=== PATIENT | female | born 1970 | race Caucasian/White ===

== ENCOUNTER 2016-07-02 03:46 | Emergency (ER) | payer MEDICAID ==
[~2016-07-02] VITALS: Ht 157.5 cm; Wt 81.6 kg
[2016-07-02 03:50] VITALS: BP 139/84; PULSE 78; RESP 18; TEMP 97.8; O2SAT 97
--- NOTE | 2016-07-02 03:50 | NUR ---
Placed in room 8. Placed on blood pressure machine and pulse oximeter. To gown for exam. Side rails up.
--- NOTE | 2016-07-02 04:00 | NUR ---
Patient alert and orient x 4. Korean speaking only. One female and one male family member at bedside. Male family member stands as interpreter translator. Pt came in the ER with a complaint of RUQ abdominal pain which started an hour ago and radiates to her lower leg. Pain scale 10/10. Denies nausea, vomiting or diarrhea. No fever or headache. No acute distress or SOB noted.
--- NOTE | 2016-07-02 04:14 | NUR ---
ER Dr. Jackson at bedside examining patient.
[2016-07-02] MEDS ORDERED: NACL 0.9% 1,000 ML IV ONE (04:15)
[2016-07-02] MEDS ORDERED: MORPHINE 4 MG/ML INJ. SYRINGE IVP ONE (04:15)
[2016-07-02] MEDS ORDERED: KETOROLAC TROMETHAMINE 30 MG VIAL IVP ONE (04:15)
--- NOTE | 2016-07-02 04:15 | NUR ---
# 20 gauge angiocath placed to right AC. Use of asceptic technique. Opsite placed over site. Blood return noted. Blood for lab drawn from site. Flushed with 10 cc of normal saline. No evidence of infiltration noted. Patient tolerated well.
[2016-07-02 04:24] LABS: BILIRUBIN,URINE NEGATIVE (NEGATIVE); BLOOD, URINE 3+ (NEGATIVE); COLOR,URINE YELLOW (YELLOW); GLUCOSE,URINE NEGATIVE (NEGATIVE); KETONES,URINE NEGATIVE (NEGATIVE); LEUKOCYTE ESTERASE ,URINE NEGATIVE (NEGATIVE); NITRITE, URINE NEGATIVE (NEGATIVE); PH,URINE 5.5 (5.0-8.0); PROTEIN URINE NEGATIVE (NEGATIVE); UROBILINOGEN,URINE 0.2 (0.2-1.0)
[2016-07-02 04:37] LABS: CLARITY/URINE SLIGHTLY HAZY (CLEAR)
[2016-07-02 04:39] LABS: BACTERIA,URINE FEW /HPF (None Seen); RBC,URINE >100 /HPF (0-3); WBC,URINE 0-3 /HPF (0-3)
[2016-07-02 04:40] LABS: MUCUS,URINE None Seen /LPF (None Seen)
[2016-07-02 04:51] LABS: WHITE BLOOD COUNT (AUTO) 7.1 K/uL (4.8-10.8)
--- NOTE | 2016-07-02 04:53 | NUR ---
Pt being wheeled to radiology dept. for CT abdomen and pelvis without contrast via gurney.
[2016-07-02 05:08] LABS: BASOPHILS % (AUTO) 0.7 % (0.0-2.0); EOSINOPHILS # (AUTO) 0.1 K/uL (0.0-0.4); EOSINOPHILS % (AUTO) 1.5 % (0.0-4.0); HEMATOCRIT 36.2 % (36-48); HEMOGLOBIN 12.6 g/dL (12.0-16.0); LYMPHOCYTES # (AUTO) 2.3 K/uL (1.0-5.5); LYMPHOCYTES % (AUTO) 31.8 % (20.5-51.5); MEAN CORPUSCULAR HEMOGLOBIN 28 pg (27-31); MEAN CORPUSCULAR HGB CONC 35 % (32-36); MEAN CORPUSCULAR VOLUME 82 fL (79.0-98.0); MONOCYTES # (AUTO) 0.4 K/uL (0.0-1.0); MONOCYTES % (AUTO) 5.3 % (1.7-9.3); NEUTROPHILS # (AUTO) 4.3 K/uL (1.8-7.7); NEUTROPHILS % (AUTO) 60.7 % (40.0-70.0); PLATELET COUNT (AUTO) 144 K/uL (130-430); RED BLOOD CELL COUNT(AUTO) 4.41 MIL/uL (4.2-6.2); RED CELL DISTRIBUTION WIDTH 12.5 % (9.0-15.0)
[2016-07-02 05:09] LABS: ALBUMIN 3.6 g/dL (3.4-4.8); CALCIUM 8.6 mg/dL (8.4-11.0); CREATININE 0.96 mg/dL (0.55-1.30); POTASSIUM 3.5 mmol/L (3.5-5.1); TOTAL BILIRUBIN 0.6 mg/dL (0.0-1.0); TOTAL PROTEIN, SERUM 7.7 g/dL (6.4-8.3)
[2016-07-02 06:44] VITALS: BP 139/84; PULSE 78; RESP 18; TEMP 97.8; O2SAT 97
--- NOTE | 2016-07-02 06:44 | NUR ---
Additional discharge notes: Discharge instructions were explained to 2 family members that understands and speaks latvian. One nephew and one niece.
--- NOTE | 2016-07-02 06:44 | NUR ---
Patient given written and verbal discharge instructions and verbalizes understanding. ER MD discussed with patient the results and treatment provided. Patient in stable condition. No acute distress or SOB noted upon discharge. ID arm band removed. IV catheter removed intact and dressing applied, no active bleeding. No Rx given. Patient educated on pain management and to follow up with PMD. Pain Scale 0/10. Opportunity for questions provided and answered.
== END 2016-07-02 06:44 | disposition home or self-care (01) ==
LOC: SED 03:46
DX: N20.0 Calculus of kidney (principal)
CPT/HCPCS: 36415; 74176; 80053; 81000; 85025; 96361; 96374; 96375; 99285; J1885; J2270; J7030

== ENCOUNTER 2021-01-20 14:04 | Emergency (ER) | payer MEDICAID ==
[~2021-01-20] VITALS: Ht 157.5 cm; Wt 75.7 kg
[2021-01-20 14:12] VITALS: BP_SYST 120
[2021-01-20] MEDS ORDERED: HYDROcodone/ACETAMIN 10-325 MG TAB PO ONE (14:30)
[2021-01-20] MEDS ORDERED: IBUPROFEN 800 MG TABLET PO ONE (14:30)
[2021-01-20] MEDS ORDERED: IBUP-1969 PO (16:07)
[2021-01-20] MEDS ORDERED: HYDR-3917 PO (16:07)
--- NOTE | 2021-01-20 17:23 | NUR ---
ASSUMED CARE, T IN WAITING LOBBY. PT STATES HERE FOR RT HAND PAIN, STATES SHE HAD A MECHANICAL FALL WHILE AT HOME IN THE KITCHEN LAST NIGHT. RT HAND PAIN 10/10, BRUISED , DENIES NUMBNSS/TINGLING, CAP REFILL<3, PAINFUL TO MOVE. RADIAL PULSES PRESENT. ORDERES TO MEDICATE. MEDCATED ORDERED. FRIEND IN LOBBY WITH PT, WILL BE DRIVING HOME.
--- NOTE | 2021-01-20 17:34 | NUR ---
Patient given written and verbal discharge instructions and verbalizes understanding. ER MD discussed with patient the results and treatment provided. Patient in stable condition. ID arm band removed. IV catheter removed intact and dressing applied, no active bleeding. Rx of norco, motrin given. Patient educated on pain management and to follow up with PMD. Pain Scale . Opportunity for questions provided and answered. Medication side effect fact sheet provided.
[2021-01-20 17:46] VITALS: BP_SYST 133
== END 2021-01-20 17:34 | disposition home or self-care (01) ==
LOC: SED 14:04
DX: S63.501A Unspecified sprain of right wrist, initial encounter (principal); I10 Essential (primary) hypertension; Z79.899 Other long term (current) drug therapy; W18.39XA Other fall on same level, initial encounter; Y93.89 Activity, other specified; Y92.89 Other specified places as the place of occurrence of the external cause; Y99.8 Other external cause status
CPT/HCPCS: 99284